=== PATIENT | female | born 1945 | race Caucasian/White ===

== ENCOUNTER → 2016-06-23 | Outpatient (CLI) | payer MEDICARE ==
--- NOTE | 2016-06-23 13:10 | DI ---
Indication: ITS.REASON: M25.549 HAND JOINT PAIN HAND RIGHT 3 VIEW Comparison: None Findings: There is no acute fracture, dislocation or malalignment identified. Patient does demonstrate just mild degenerative changes. Impression: No acute osseous abnormality with very minimal degenerative change noted. .
== END ==
LOC: IMA 12:39
PROVIDERS: ATTEND Nurse Practitioner Family
DX: M25.541 Pain in joints of right hand (principal)

== ENCOUNTER → 2016-08-10 | Outpatient (CLI) | payer MEDICARE | LOC: IMA 10:41 | PROVIDERS: ATTEND Family Medicine | DX: M85.88 Other specified disorders of bone density and structure, other site (principal); Z82.62 Family history of osteoporosis; Z82.69 Family history of other diseases of the musculoskeletal system and connective tissue ==